=== PATIENT | female | born 1930 | race Caucasian/White ===

== ENCOUNTER 2016-05-20 14:51 | Emergency (ER) | payer MEDICARE, MEDICAID ==
[~2016-05-20] VITALS: Ht 170.2 cm; Wt 57.6 kg
[2016-05-20 15:04] VITALS: BP 101/57
[2016-05-20] MEDS ORDERED: POTA20PW GT (15:15)
[2016-05-20] MEDS ORDERED: ISOS20TA PO (15:15)
[2016-05-20] MEDS ORDERED: ACET500C PO (15:15)
[2016-05-20] MEDS ORDERED: NICO21DI5 TD (15:15)
[2016-05-20] MEDS ORDERED: ACET650S3 PR (15:15)
[2016-05-20] MEDS ORDERED: MEMA1TAB PO (15:15)
[2016-05-20] MEDS ORDERED: LASI40TA PO (15:15)
[2016-05-20] MEDS ORDERED: MULTLIQ (15:15)
[2016-05-20] MEDS ORDERED: TETANUS/DIPHTHERIA TOX ADSORB ADULT 0.5ML SYR/VIAL (90714) IM ONE (15:45)
--- NOTE | 2016-05-21 08:15 | REP ---
CT study of the brain without contrast: History: Trauma. Findings: Digital lateral legend maker view is unremarkable except for some scalp swelling at the vertex. On bone window settings there is a scalp hematoma just to the right of midline at the posterior vertex. No skull fracture is seen. No intraorbital abnormalities observed. Vascular calcification is seen in the distal vertebral and carotid arteries bilaterally. There is moderate diffuse cerebral atrophy. There is no evidence of intracranial hemorrhage. No extra-axial fluid collection is seen. No mass, infarction or midline shift is seen. Impression: 1. Right vertex scalp hematoma. No skull fracture is seen. 2. Diffuse atrophy, vascular calcification and some small vessel changes. No acute intracranial lesion. No hemorrhage or contusion seen. Signed by Mayito Tate MD 05/21/2016 08:43 A
== END 2016-05-20 16:32 | disposition home or self-care (01) ==
LOC: M ED 16:07
DX: S09.90XA Unspecified injury of head, initial encounter (principal); W19.XXXA Unspecified fall, initial encounter; Y92.89 Other specified places as the place of occurrence of the external cause; Y93.89 Activity, other specified; Y99.9 Unspecified external cause status

== ENCOUNTER 2016-06-20 11:23 | Inpatient (IN) | payer MEDICARE, MEDICAID ==
[~2016-06-20] VITALS: Ht 170.2 cm; Wt 53.3 kg
[~2016-06-20 11:23] MED LIST changes: -ACET-654 PO; -BISA10SU4 PR; -ENEM1ENE4 PR; -LEVA500T PO; -MILKSUS PO; -MIRT1TAB PO; -NICO7DIS2 TD; -REME15TA PO; -VITMTA PO
[2016-06-20] MEDS ORDERED: NS IV ONE (11:45)
[2016-06-20] MEDS ORDERED: DILUENT IV ONE (11:45)
[2016-06-20] MEDS ORDERED: REME15TA PO (11:46)
[2016-06-20] MEDS ORDERED: ACETAMINOPHEN TAB 650MG DOSE (2X325MG) PO ONE (12:00)
[2016-06-20 12:02] LABS: ABG BASE EXCESS 0.1 (-2.0-2.0); ABG HCO3 22.5 MEQ/L (22.0-26.0); ABG PARTIAL PRESSURE CO2 30.1 mmHg (35.0-45.0); ABG PARTIAL PRESSURE O2 72.6 mmHg (75.0-100.0); ABG STANDARD HCO3 24.5 MEQ/L (22.0-26.0); ABG TOTAL CO2 23.5 MEQ/L (23.0-31.0); ABG pH (ARTERIAL) 7.492 UNITS (7.350-7.450)
[2016-06-20] MEDS ORDERED: CEFEPIME HCL 1 GM in D5W MINI-BAG PLUS 50 ML IV ONE (12:15)
[2016-06-20 12:16] LABS: BASO % 0.3 % (0.0-1.0); EOS % 0.3 % (0.0-3.0); LARGE UNSTAINED CELL # 0.2 K/mm3 (0.0-0.4); LARGE UNSTAINED CELL % 1.2 % (0.0-4.0); LYMPH # 1.5 K/mm3 (1.5-4.5); LYMPH % 9.4 % (24.0-44.0); MEAN CORPUSCULAR HEMOGLOBIN 30.8 pg (27.0-33.0); MEAN CORPUSCULAR HGB CONC 32.9 g/dl (32.0-36.5); MEAN CORPUSCULAR VOLUME 93.8 fl (80.0-96.0); MONO % 6.2 % (0.0-5.0); NEUTROPHILS # 12.7 K/mm3 (1.8-7.7); NEUTROPHILS % 82.5 % (36.0-66.0); PLATELET COUNT, AUTOMATED 131 k/mm3 (150-450); RED CELL DISTRIBUTION WIDTH 12.3 % (11.5-14.5); WHITE BLOOD COUNT 15.4 K/mm3 (4.0-10.0)
[2016-06-20 12:24] LABS: INR 1.2
[2016-06-20 12:31] LABS: ALBUMIN 2.9 GM/DL (3.2-5.2); ALBUMIN/GLOBULIN RATIO 0.71 (1.00-1.93); BILIRUBIN,DIRECT 0.1 MG/DL (0.0-0.2); BILIRUBIN,TOTAL 0.5 MG/DL (0.2-1.0); CALCIUM LEVEL 8.1 MG/DL (8.8-10.2); CREATININE FOR GFR 1.74 MG/DL (0.55-1.02); GLOMERULAR FILTRATION RATE 29.5 (>32); POTASSIUM SERUM 3.9 MEQ/L (3.5-5.1)
--- NOTE | 2016-06-20 12:37 | REP ---
Portable chest: Single view. History: Sepsis, shock. Comparison study: No comparison radiographs. Findings: The patient is rotated somewhat to the right for the current exposure. A bipolar pacemaker is seen in the right heart via the left side. The heart is not enlarged. The lungs are well inflated and free of infiltrate. The pleural angles are sharp. Pulmonary vasculature is not increased. Impression: No active disease. Pacemaker in place. Patient rotated somewhat to the right. Signed by Mayito Tate MD 06/20/2016 03:38 P
[2016-06-20] MEDS ORDERED: NICO7DIS2 TD (13:46)
[2016-06-20] MEDS ORDERED: MIRT1TAB PO (13:46)
[2016-06-20] MEDS ORDERED: BISA10SU4 PR (13:50)
[2016-06-20] MEDS ORDERED: MILKSUS PO (13:50)
[2016-06-20] MEDS ORDERED: VITMTA PO (13:50)
[2016-06-20] MEDS ORDERED: ENEM1ENE4 PR (13:50)
[2016-06-20] MEDS ORDERED: ACET-654 PO (13:54)
--- NOTE | 2016-06-20 15:08 | HPEPDOC ---
General Date of Admission Primary Care Physician: Melody Coburn Chief Complaint The patient is a 85-year-old female admitted with a reason for visit of FEVER. Source: Family Exam Limitations: Dementia, Hard of hearing, Other History of Present Illness Ms Mehta is an 85 y/o female with past medical history of advanced dementia , nicotine dependence, pacemaker implantation, history of VT greater than 5 years ago and chronic back pain who is a resident of [facility] who presents to the ED due to low blood pressures and falls. According to the granddaughter Giulia, who is bedside and is also the pts health care proxy, she states that her grandmother has also been more fatigued than usual over the past 3 days.The patient is essentially unable to give a history as she has advanced dementia and is so tired, she falls asleep after a few seconds of arousal. Thus most of the history is per the grandauter. She states to the best of her ability that the patient has not ever lost consciousness, lost bowel or urine function, complained of cough or sob nor bernabe chest pain during , before or proceeding these falls. She states that she used to live with her and her at home but started to use foul language when she would become disorientated and they realized she was too much to care for, so they decided to place her in [facility]. The grand daughter denied the pt complaining of recent h/a , blurred vision, back pain, problems defecating or urinating nor fever or chills.The HCP can be reached at [phone]. Home Medications Scheduled Memantine Hydrochloride (Memantine HCl) 5 Mg Tab 5 MG PO DAILY (Reported) Mirtazapine (Mirtazapine) 7.5 Mg Tab 7.5 MG PO QHS (Reported) Multivitamins *[facility] STOCKED* (Thera M Plus *[facility] STOCKED*) 1 Tab Tab 1 TAB PO DAILY (Reported) Nicotine (Nicotine 7MG Patch) 1 Patch Tdsy 1 PATCH TD DAILY (Reported) SCRIPT STARTED 06/08/16 FOR 14 DAYS END DATE OF 06/21/16 Scheduled PRN (Enema) 1 Tari Tari 1 TARI NM DAILY PRN PRN CONSTIPATION (Reported) Acetaminophen (Acetaminophen) 650 Mg Sup 650 MG NM Q4H PRN PRN PAIN / FEVER ( Reported) Acetaminophen (Acetaminophen) 325 Mg Tab 650 MG PO Q4H PRN PRN PAIN OR FEVER ( Reported) Bisacodyl (Bisacodyl) 10 Mg Sup 10 MG NM DAILY PRN PRN CONSTIPATION (Reported) Milk Of Magnesia (Milk of Magnesia) 1,200 Mg/15 Ml Yolette 30 ML PO DAILY PRN PRN CONSTIPATION (Reported) Allergies Coded Allergies: No Known Drug Allergy (Verified Allergy, Unknown, 05/20/16) Past Medical History Medical History advanced dementia pacemaker insert VT > 5yrs prior nicotine abuse/dependence back pain Surgical History back sx pacemaker Social History * Smoker: former Smoker (quit 2 mo ago when moved into [facility], used to smoke .5 ppd since the year 1964) Drugs: denies [facility] resident Review of Symptoms Constitutional: Reports: Fever, Denies: Chills, Malaise Eyes: Denies: Conjunctivae inflammation, Eyelid inflammation (ROS unobtainable by pt.), Pain, Vision change Physical Examination General Exam: Positive: No Acute Distress Eye Exam: Positive: EOMI, Negative: Sclera icteric ENT Exam: Positive: Atraumatic, Nares Patent Neck Exam: Positive: Supple Chest Exam: Positive: Clear to auscultation, Other (some crackles RUL), Negative: Diminished, Rales, Rhonchi, Wheezing Heart Exam: Positive: Normal S1, Normal S2, Rate Normal, Negative: Gallops, Rubs Telemetry: Positive: No significant arrhythmia Abdomen Exam: Positive: Normal bowel sounds, Soft, Negative: BS Hyperactive, BS Hypoactive, Hepatospenomegaly, Tenderness Extremity Exam: Positive: Normal pulses, Negative: Cyanosis, Edema Psych Exam: Positive: Other (advanced dementia) Vital Signs Vital Signs Date Time Temp Pulse Resp B/P Pulse Ox O2 Delivery O2 Flow Rate FiO2 06/20/16 14:09 62 95 06/20/16 14:01 97/55 06/20/16 13:19 99.4 06/20/16 11:51 18 Room Air Laboratory Data Labs 24H Laboratory Tests 2 06/20/16 11:53: Arterial Blood pH 7.492H, Arterial Blood Partial Pressure CO2 30.1L, Arterial Blood Partial Pressure O2 72.6L, Arterial Blood Total CO2 23.5, Arterial Blood HCO3 22.5, Arterial Blood Base Excess 0.1, Arterial Blood Oxygen Saturation 95.0 , Blood Gas Bicarbonate Standard 24.5 06/20/16 11:59: Activated Partial Thromboplast Time 31.2, Aspartate Amino Transf (AST/SGOT) 44H , Alanine Aminotransferase (ALT/SGPT) 35, Alkaline Phosphatase 64, Total Bilirubin 0.5, Direct Bilirubin 0.1, Albumin 2.9L, Albumin/Globulin Ratio 0.71L , Amylase Level 54, Anion Gap 7L, White Blood Count 15.4H, Red Blood Count 3.97L , Hemoglobin 12.3, Hematocrit 37.3, Mean Corpuscular Volume 93.8, Mean Corpuscular Hemoglobin 30.8, Mean Corpuscular Hemoglobin Concent 32.9, Red Cell Distribution Width 12.3, Platelet Count 131L, Neutrophils (%) (Auto) 82.5H, Lymphocytes (%) (Auto) 9.4L, Monocytes (%) (Auto) 6.2H, Eosinophils (%) (Auto) 0.3, Basophils (%) (Auto) 0.3, Neutrophils # (Auto) 12.7H, Lymphocytes # (Auto) 1.5, Monocytes # (Auto) 1.0H, Eosinophils # (Auto) 0.0, Basophils # (Auto) 0.0, C-Reactive Protein, Quantitative 7.80H, Calcium Level 8.1L, Creatine Kinase MB 1.0, Creatine Kinase MB Relative Index 0.58, Glomerular Filtration Rate 29.5L, Lactic Acid Level 1.6, Large Unclassified Cells # 0.2, Large Unclassified Cells % 1.2, Prothromb Time International Ratio 1.20, Prothrombin Time 15.3H, Total Creatine Kinase 171, Total Protein 7.0, Troponin I 0.04 06/20/16 12:11: Urine Amorphous Sediment , Urine Appearance HAZY, Urine Color YELLOW, Urine pH 5.0, Urine Specific [place] 1.012, Urine Protein 1+H, Urine Glucose (UA) NEGATIVE, Urine Ketones NEGATIVE, Urine Urobilinogen 0.2, Urine Bilirubin NEGATIVE, Urine Leukocyte Esterase 3+H, Urine Bacteria (Auto) 3+H, Urine Blood 1 +H, Urine Calcium Carbonate Cryst(Auto) , Urine Calcium Oxalate Cryst (Auto) , Urine Calcium Phosphate Jessica (Auto) , Urine Cellular Casts , Urine Cystine Crystals , Urine Granular Casts (Auto) , Urine Hyaline Casts (Auto) 0, Urine Leucine Crystals , Urine Mucus (Auto) SMALL, Urine Nitrite NEGATIVE, Urine Oval Fat Bodies (Auto) , Urine RBC (Auto) 4H, Urine Renal Epithelial Cells , Urine Sperm (Auto) , Urine Squamous Epithelial Cells 0, Urine Transitional Epithelial Cells , Urine Trichomonas (Auto) , Urine Triple Phosphate Cryst (Auto) , Urine Tyrosine Crystals , Urine Uric Acid Crystals (Auto) , Urine WBC (Auto) 117H, Urine Waxy Casts (Auto) , Urine Yeast-Like Cells (Auto) CBC/BMP Laboratory Tests 06/20/16 11:59 Red Blood Count 3.97 L, Mean Corpuscular Volume 93.8, Mean Corpuscular Hemoglobin 30.8, Mean Corpuscular Hemoglobin Concent 32.9, Red Cell Distribution Width 12.3, Neutrophils (%) (Auto) 82.5 H, Lymphocytes (%) (Auto) 9.4 L, Monocytes (%) (Auto) 6.2 H, Eosinophils (%) (Auto) 0.3, Basophils (%) ( Auto) 0.3, Neutrophils # (Auto) 12.7 H, Lymphocytes # (Auto) 1.5, Monocytes # ( Auto) 1.0 H, Eosinophils # (Auto) 0.0, Basophils # (Auto) 0.0 Microbiology Microbiology 06/20/16 Blood Culture, Received Pending 06/20/16 Blood Culture, Received Pending 06/20/16 Influenza Virus Type A Antigen - Final, Complete 06/20/16 Influenza Virus Type B Antigen - Final, Complete 06/20/16 Urine Culture, Received Pending Problems (1) Sepsis Status: Acute Response to Treatment: Stable Problem Text: likely 2/2 uti urine and blood cx pending rr 18-22 temp 101.6 F highest in ED BP soft 104/57 wbc 15.4 will begin NS at 50 cc s/p 2500 mL NS bolus s/p 1 gm cefepime- will continue on admission q12h repeat CMP and BMP in AM CXR neg. 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 (4) DVT prophylaxis Status: Acute Response to Treatment: Stable Problem Text: scd teds Plan / VTE VTE Prophylaxis Ordered?: Yes GME ATTESTATION GME ATTESTATION My preceptor for this patient encounter was physically present in the building during the encounter and was fully available. As needed, all aspects of the patient interview, examination, medical decision making process, and medical care plan development were reviewed and approved by the preceptor. Preceptor is aware and concurs with the plan as stated in the body of this note and will attest to such by his/her cosignature. POLINA BRUCE DO Jun 20, 2016 15:08
[2016-06-20] MEDS ORDERED: BISACODYL 10 MG SUPP PR PRN (16:30)
[2016-06-20] MEDS ORDERED: ACETAMINOPHEN 650 MG SUPP PR PRN (16:30)
[2016-06-20] MEDS ORDERED: MOM 30ML SUSPENSION UDC PO PRN (16:30)
[2016-06-20 16:50] VITALS: BP 131/60
[2016-06-20] MEDS: NS 1,000 ML IV SCH (16:59)
--- NOTE | 2016-06-20 20:18 | ECGEPIP ---
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
[2016-06-20] MEDS: MIRTAZAPINE 7.5MG PER 1/2 TABLET PO SCH (21:31)
[2016-06-20 22:00] VITALS: BP 120/58
[2016-06-21] MEDS: CEFEPIME HCL 1 GM in D5W MINI-BAG PLUS 50 ML IV SCH ×3 (00:17→23:19)
[2016-06-21 06:00] VITALS: BP 108/52
[2016-06-21 07:51] LABS: BASO % 0.3 % (0.0-1.0); EOS % 0.1 % (0.0-3.0); LARGE UNSTAINED CELL # 0.1 K/mm3 (0.0-0.4); LARGE UNSTAINED CELL % 1.2 % (0.0-4.0); LYMPH # 2.2 K/mm3 (1.5-4.5); LYMPH % 18.4 % (24.0-44.0); MEAN CORPUSCULAR HEMOGLOBIN 31.3 pg (27.0-33.0); MEAN CORPUSCULAR HGB CONC 33.1 g/dl (32.0-36.5); MEAN CORPUSCULAR VOLUME 94.6 fl (80.0-96.0); MONO # 0.6 K/mm3 (0.0-0.8); MONO % 4.9 % (0.0-5.0); NEUTROPHILS # 8.4 K/mm3 (1.8-7.7); NEUTROPHILS % 75.1 % (36.0-66.0); PLATELET COUNT, AUTOMATED 102 k/mm3 (150-450); RED CELL DISTRIBUTION WIDTH 12.4 % (11.5-14.5); WHITE BLOOD COUNT 11.2 K/mm3 (4.0-10.0)
[2016-06-21 08:17] LABS: CALCIUM LEVEL 7.4 MG/DL (8.8-10.2); CREATININE FOR GFR 1.08 MG/DL (0.55-1.02); GLOMERULAR FILTRATION RATE 51.1 (>32); POTASSIUM SERUM 3.7 MEQ/L (3.5-5.1)
[2016-06-21] MEDS: MEMANTINE 5MG TABLET (NAMENDA) PO SCH (09:17)
[2016-06-21] MEDS: MULTIVITAMINS/MINERALS THERAP 1 TAB PO SCH (09:17)
[2016-06-21] MEDS: NICOTINE 7 MG/24 HR TRANSDERMAL TD SCH (09:17)
--- NOTE | 2016-06-21 10:58 | IPNPDOC ---
Subjective Date Seen The patient was seen on 06/21/16. Subjective Chief Complaint/HPI Pt demented, history difficult to obtain. General: Reports: ROS Unobtainable Objective Physical Examination General Exam: Positive: No Acute Distress (resting in bed, opens eyes briefly to voice, becomes agitated, tells me to "shut up") Eye Exam: Positive: EOMI, Negative: Sclera icteric ENT Exam: Positive: Atraumatic, Nares Patent Neck Exam: Positive: Supple Chest Exam: Positive: Clear to auscultation, Other (some crackles RUL), Negative: Diminished, Rales, Rhonchi, Wheezing Heart Exam: Positive: Normal S1, Normal S2, Rate Normal, Negative: Gallops, Rubs Telemetry: Positive: No significant arrhythmia Abdomen Exam: Positive: Normal bowel sounds, Soft, Tenderness (? tenderness on exam, pushes my hands away?), Negative: BS Hyperactive, BS Hypoactive, Hepatospenomegaly Extremity Exam: Positive: Normal pulses, Negative: Cyanosis, Edema Psych Exam: Positive: Other (advanced dementia) Assessment /Plan Problems (1) Sepsis Status: Acute Response to Treatment: Stable Problem Text: 06/21 - Tmax 100.1, WBC trending down, pressures remain soft, will cont with IVF at 50 cc/hr, Blood cultures pending, Urine Cx + Group B strep , cont with cefepime. 06/20 likely 2/2 uti urine and blood cx pending rr 18-22 temp 101.6 F highest in ED BP soft 104/57 wbc 15.4 will begin NS at 50 cc s/p 2500 mL NS bolus s/p 1 gm cefepime- will continue on admission q12h repeat CMP and BMP in AM CXR neg. 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 06/20 c.w home medication pt gets angry when put in new situations- will order sitter (3) Nicotine dependence Status: Acute Response to Treatment: Stable Problem Text: c/w nicotine patch inpt. (4) Severe protein-calorie malnutrition Status: Acute Problem Specific Plan: Monitor Clinically Problem Text: 06/21 - I discussed PEG with patient's granddaughter and HCP this afternoon - she states patient would not want a PEG; I d/w her that weight loss and decreased appetite are expected with progression of dementia, and do not necessarily indicate that patient has an other underlying problem or is uncomfortable. (KES) BMI 18, 05/19/18 weight 127, now 117. Consider PEG placement. (5) Urinary retention Status: Acute Problem Text: 06/21 - Patient c/o abdominal discomfort earlier today; bladder scan showed 765 ml in bladder and patient was straight cath'ed for 850 [address] currently in [address]. (KES) (6) DVT prophylaxis Status: Chronic Response to Treatment: Stable Problem Text: scd teds Plan/VTE VTE Prophylaxis Ordered?: Yes Plan Family Medicine Attending Note: Patient seen and examined this afternoon; I d/w PRAKASH Olson and I agree with her note with above additions. She has no complaints at present. Graham catheter is in place and draining light yellow urine. (KES) VS, I&O, 24H, Fishbone Vital Signs/I&O Vital Signs Date Time Temp Pulse Resp B/P Pulse Ox O2 Delivery O2 Flow Rate FiO2 06/21/16 06:00 99.0 76 19 108/52 90 Room Air I&O- Last 24 Hours up to 6 AM 06/21/16 06:00 Intake Total 720 ml Output Total 1500 ml Balance -780 ml Laboratory Data 24H LABS Laboratory Tests 2 06/20/16 11:53: Arterial Blood pH 7.492H, Arterial Blood Partial Pressure CO2 30.1L, Arterial Blood Partial Pressure O2 72.6L, Arterial Blood Total CO2 23.5, Arterial Blood HCO3 22.5, Arterial Blood Base Excess 0.1, Arterial Blood Oxygen Saturation 95.0 , Blood Gas Bicarbonate Standard 24.5 06/20/16 11:59: Activated Partial Thromboplast Time 31.2, Aspartate Amino Transf (AST/SGOT) 44H , Alanine Aminotransferase (ALT/SGPT) 35, Alkaline Phosphatase 64, Total Bilirubin 0.5, Direct Bilirubin 0.1, Albumin 2.9L, Albumin/Globulin Ratio 0.71L , Amylase Level 54, Anion Gap 7L, White Blood Count 15.4H, Red Blood Count 3.97L , Hemoglobin 12.3, Hematocrit 37.3, Mean Corpuscular Volume 93.8, Mean Corpuscular Hemoglobin 30.8, Mean Corpuscular Hemoglobin Concent 32.9, Red Cell Distribution Width 12.3, Platelet Count 131L, Neutrophils (%) (Auto) 82.5H, Lymphocytes (%) (Auto) 9.4L, Monocytes (%) (Auto) 6.2H, Eosinophils (%) (Auto) 0.3, Basophils (%) (Auto) 0.3, Neutrophils # (Auto) 12.7H, Lymphocytes # (Auto) 1.5, Monocytes # (Auto) 1.0H, Eosinophils # (Auto) 0.0, Basophils # (Auto) 0.0, C-Reactive Protein, Quantitative 7.80H, Calcium Level 8.1L, Creatine Kinase MB 1.0, Creatine Kinase MB Relative Index 0.58, Glomerular Filtration Rate 29.5L, Lactic Acid Level 1.6, Large Unclassified Cells # 0.2, Large Unclassified Cells % 1.2, Prothromb Time International Ratio 1.20, Prothrombin Time 15.3H, Total Creatine Kinase 171, Total Protein 7.0, Troponin I 0.04 06/20/16 12:11: Urine Amorphous Sediment , Urine Appearance HAZY, Urine Color YELLOW, Urine pH 5.0, Urine Specific [place] 1.012, Urine Protein 1+H, Urine Glucose (UA) NEGATIVE, Urine Ketones NEGATIVE, Urine Urobilinogen 0.2, Urine Bilirubin NEGATIVE, Urine Leukocyte Esterase 3+H, Urine Bacteria (Auto) 3+H, Urine Blood 1 +H, Urine Calcium Carbonate Cryst(Auto) , Urine Calcium Oxalate Cryst (Auto) , Urine Calcium Phosphate Jessica (Auto) , Urine Cellular Casts , Urine Cystine Crystals , Urine Granular Casts (Auto) , Urine Hyaline Casts (Auto) 0, Urine Leucine Crystals , Urine Mucus (Auto) SMALL, Urine Nitrite NEGATIVE, Urine Oval Fat Bodies (Auto) , Urine RBC (Auto) 4H, Urine Renal Epithelial Cells , Urine Sperm (Auto) , Urine Squamous Epithelial Cells 0, Urine Transitional Epithelial Cells , Urine Trichomonas (Auto) , Urine Triple Phosphate Cryst (Auto) , Urine Tyrosine Crystals , Urine Uric Acid Crystals (Auto) , Urine WBC (Auto) 117H, Urine Waxy Casts (Auto) , Urine Yeast-Like Cells (Auto) 06/21/16 06:56: Anion Gap 8, White Blood Count 11.2H, Red Blood Count 3.49L, Hemoglobin 10.9L, Hematocrit 33.0L, Mean Corpuscular Volume 94.6, Mean Corpuscular Hemoglobin 31.3 , Mean Corpuscular Hemoglobin Concent 33.1, Red Cell Distribution Width 12.4, Platelet Count 102L, Neutrophils (%) (Auto) 75.1H, Lymphocytes (%) (Auto) 18.4L , Monocytes (%) (Auto) 4.9, Eosinophils (%) (Auto) 0.1, Basophils (%) (Auto) 0.3 , Neutrophils # (Auto) 8.4H, Lymphocytes # (Auto) 2.2, Monocytes # (Auto) 0.6, Eosinophils # (Auto) 0.0, Basophils # (Auto) 0.0, Calcium Level 7.4L, Glomerular Filtration Rate 51.1, Large Unclassified Cells # 0.1, Large Unclassified Cells % 1.2, Blood Urea Nitrogen 35H, Creatinine 1.08H, Sodium Level 139, Potassium Level 3.7, Chloride Level 107, Carbon Dioxide Level 24 CBC/BMP Laboratory Tests 06/20/16 11:59 Red Blood Count 3.97 L, Mean Corpuscular Volume 93.8, Mean Corpuscular Hemoglobin 30.8, Mean Corpuscular Hemoglobin Concent 32.9, Red Cell Distribution Width 12.3, Neutrophils (%) (Auto) 82.5 H, Lymphocytes (%) (Auto) 9.4 L, Monocytes (%) (Auto) 6.2 H, Eosinophils (%) (Auto) 0.3, Basophils (%) ( Auto) 0.3, Neutrophils # (Auto) 12.7 H, Lymphocytes # (Auto) 1.5, Monocytes # ( Auto) 1.0 H, Eosinophils # (Auto) 0.0, Basophils # (Auto) 0.0 06/21/16 06:56 Red Blood Count 3.49 L, Mean Corpuscular Volume 94.6, Mean Corpuscular Hemoglobin 31.3, Mean Corpuscular Hemoglobin Concent 33.1, Red Cell Distribution Width 12.4, Neutrophils (%) (Auto) 75.1 H, Lymphocytes (%) (Auto) 18.4 L, Monocytes (%) (Auto) 4.9, Eosinophils (%) (Auto) 0.1, Basophils (%) ( Auto) 0.3, Neutrophils # (Auto) 8.4 H, Lymphocytes # (Auto) 2.2, Monocytes # ( Auto) 0.6, Eosinophils # (Auto) 0.0, Basophils # (Auto) 0.0, Calcium Level 7.4 L Microbiology Microbiology 06/20/16 Blood Culture, Received Pending 06/20/16 Blood Culture, Received Pending 06/20/16 Influenza Virus Type A Antigen - Final, Complete 06/20/16 Influenza Virus Type B Antigen - Final, Complete 06/20/16 Urine Culture - Preliminary, Resulted Strep Agalactiae Group B BRENDAN WEATHERS PA-C Jun 21, 2016 10:57 CARLINE DIXON MD Jun 21, 2016 16:03
[2016-06-21] MEDS: NS 1,000 ML IV SCH (12:53)
[2016-06-21 14:00] VITALS: BP 119/58
[2016-06-21] MEDS: MIRTAZAPINE 7.5MG PER 1/2 TABLET PO SCH (20:46)
[2016-06-21 22:00] VITALS: BP 97/53
[2016-06-22 06:00] VITALS: BP 122/57
[2016-06-22 06:22] LABS: BASO % 0.4 % (0.0-1.0); EOS % 0.5 % (0.0-3.0); LARGE UNSTAINED CELL # 0.1 K/mm3 (0.0-0.4); LARGE UNSTAINED CELL % 1.1 % (0.0-4.0); LYMPH # 1.9 K/mm3 (1.5-4.5); LYMPH % 20.9 % (24.0-44.0); MEAN CORPUSCULAR HEMOGLOBIN 31.3 pg (27.0-33.0); MEAN CORPUSCULAR HGB CONC 32.7 g/dl (32.0-36.5); MEAN CORPUSCULAR VOLUME 95.6 fl (80.0-96.0); MONO # 0.4 K/mm3 (0.0-0.8); MONO % 4.6 % (0.0-5.0); NEUTROPHILS # 6.4 K/mm3 (1.8-7.7); NEUTROPHILS % 72.4 % (36.0-66.0); PLATELET COUNT, AUTOMATED 102 k/mm3 (150-450); RED CELL DISTRIBUTION WIDTH 12.4 % (11.5-14.5); WHITE BLOOD COUNT 8.8 K/mm3 (4.0-10.0)
[2016-06-22 06:26] LABS: ANION GAP 7 MEQ/L (8-16); BLOOD UREA NITROGEN 29 MG/DL (7-18); CALCIUM LEVEL 7.6 MG/DL (8.8-10.2); CARBON DIOXIDE LEVEL 23 MEQ/L (21-32); CHLORIDE LEVEL 111 MEQ/L (98-107); CREATININE FOR GFR 0.86 MG/DL (0.55-1.02); GLOMERULAR FILTRATION RATE > 60.0 (>32); GLUCOSE, FASTING 113 MG/DL (83-110); POTASSIUM SERUM 3.7 MEQ/L (3.5-5.1); SODIUM LEVEL 141 MEQ/L (136-145)
[2016-06-22] MEDS: MEMANTINE 5MG TABLET (NAMENDA) PO SCH (08:17)
[2016-06-22] MEDS: MULTIVITAMINS/MINERALS THERAP 1 TAB PO SCH (08:17)
[2016-06-22] MEDS: NICOTINE 7 MG/24 HR TRANSDERMAL TD SCH (08:17)
[2016-06-22] MEDS: NS 1,000 ML IV SCH (08:18)
--- NOTE | 2016-06-22 10:29 | IPNPDOC ---
Subjective Date Seen The patient was seen on 06/22/16. Subjective Chief Complaint/HPI The patient is a 85-year-old female admitted with a reason for visit of Sepsis. Events since last encounter Pt this morning denies pain. States that she has to "pee". She knows that she is in the hospital. General: Denies: Fatigue Constitutional: Denies: Chills, Fever Pulmonary: Denies: Cough, Dyspnea Cardiovascular: Denies: Chest Pain, Palpitations Gastrointestinal: Denies: Abdominal Pain, Diarrhea, Nausea, Vomiting Neurological: Reports: Weakness Psych: Reports: Memory Issues Objective Physical Examination General Exam: Positive: Alert (Answers questions appropriately), No Acute Distress Eye Exam: Positive: EOMI, Negative: Sclera icteric ENT Exam: Positive: Atraumatic, Nares Patent Neck Exam: Positive: Supple Chest Exam: Positive: Clear to auscultation, Negative: Diminished, Rales, Rhonchi, Wheezing Heart Exam: Positive: Normal S1, Normal S2, Rate Normal, Negative: Gallops, Rubs Telemetry: Positive: No significant arrhythmia Abdomen Exam: Positive: Normal bowel sounds, Soft, Negative: BS Hyperactive, BS Hypoactive, Hepatospenomegaly, Tenderness Extremity Exam: Positive: Normal pulses, Negative: Cyanosis, Edema Psych Exam: Positive: Other (Aware she is in the hospital, and able to report her name, incorrect response to the year) Assessment /Plan Problems (1) Sepsis Status: Acute Response to Treatment: Stable Problem Text: 06/22 - Afebrile for more than 24 h, WBC normalized, Blood cultures Neg. Will d/c IVF today. Cefepime D 2, anticipate transfer to [facility] tomorrow. 06/21 - Tmax 100.1, WBC trending down, pressures remain soft, will cont with IVF at 50 cc/hr, Blood cultures pending, Urine Cx + Group B strep, cont with cefepime. 06/20 likely 2/2 uti urine and blood cx pending rr 18-22 temp 101.6 F highest in ED BP soft 104/57 wbc 15.4 will begin NS at 50 cc s/p 2500 mL NS bolus s/p 1 gm cefepime- will continue on admission q12h repeat CMP and BMP in AM CXR neg. infectious process Pt is [employer] with trial IV antibiotics, if condition should worsen, please contact HCP Laney at [phone] (2) Dementia Status: Chronic Response to Treatment: Stable Problem Text: 06/21 - sitter at bedside, pt mostly sleeping, does become agitated during exam. 06/20 c.w home medication pt gets angry when put in new situations- will order sitter (3) Nicotine dependence Status: Acute Response to Treatment: Stable Problem Text: c/w nicotine patch inpt. (4) Severe protein-calorie malnutrition Status: Acute Problem Specific Plan: Monitor Clinically Problem Text: 06/21 - I discussed PEG with patient's granddaughter and HCP this afternoon - she states patient would not want a PEG; I d/w her that weight loss and decreased appetite are expected with progression of dementia, and do not necessarily indicate that patient has an other underlying problem or is uncomfortable. (KES) BMI 18, 05/19/18 weight 127, now 117. Consider PEG placement. (5) Urinary retention Status: Acute Problem Text: 06/21 - Patient c/o abdominal discomfort earlier today; bladder scan showed 765 ml in bladder and patient was straight cath'ed for [address] in [address]. (KES) (6) DVT prophylaxis Status: Chronic Response to Treatment: Stable Problem Text: scd teds Plan/VTE VTE Prophylaxis Ordered?: Yes Plan/Urinary Catheter Reason for insertion/continuin: Other-document below Plan Anticipated Discharge: Half-Way (anticipate d/c 06/23.) Advance Directives: DNR Family Medicine Attending Note: Patient seen and examined this afternoon. I d/ w LEX Olson and I agree with her note as above. Patient offers no complaints today and is more awake and alert today. I asked nurse to try to remove lofton catheter and monitor voiding pattern, with bladder scan PRN to determine if lofton needs to be continued. If she has recurrence of urinary retention, will re-place lofton and recommend outpatient followup after discharge home to [facility]. (KES) VS, I&O, 24H, Fishbone Vital Signs/I&O Vital Signs Date Time Temp Pulse Resp B/P Pulse Ox O2 Delivery O2 Flow Rate FiO2 06/22/16 06:00 98.8 64 18 122/57 96 Nasal Cannula 2.0 I&O- Last 24 Hours up to 6 AM 06/22/16 06:00 Intake Total 1640 ml Output Total 2100 ml Balance -460 ml Laboratory Data 24H LABS Laboratory Tests 2 06/22/16 05:41: Anion Gap 7L, White Blood Count 8.8, Red Blood Count 3.25L, Hemoglobin 10.2L, Hematocrit 31.1L, Mean Corpuscular Volume 95.6, Mean Corpuscular Hemoglobin 31.3 , Mean Corpuscular Hemoglobin Concent 32.7, Red Cell Distribution Width 12.4, Platelet Count 102L, Neutrophils (%) (Auto) 72.4H, Lymphocytes (%) (Auto) 20.9L , Monocytes (%) (Auto) 4.6, Eosinophils (%) (Auto) 0.5, Basophils (%) (Auto) 0.4 , Neutrophils # (Auto) 6.4, Lymphocytes # (Auto) 1.9, Monocytes # (Auto) 0.4, Eosinophils # (Auto) 0.0, Basophils # (Auto) 0.0, Blood Urea Nitrogen 29H, Creatinine 0.86, Sodium Level 141, Potassium Level 3.7, Chloride Level 111H, Carbon Dioxide Level 23, Calcium Level 7.6L, Glomerular Filtration Rate > 60.0, Large Unclassified Cells # 0.1, Large Unclassified Cells % 1.1 CBC/BMP Laboratory Tests 06/22/16 05:41 Calcium Level 7.6 L, Red Blood Count 3.25 L, Mean Corpuscular Volume 95.6, Mean Corpuscular Hemoglobin 31.3, Mean Corpuscular Hemoglobin Concent 32.7, Red Cell Distribution Width 12.4, Neutrophils (%) (Auto) 72.4 H, Lymphocytes (%) (Auto) 20.9 L, Monocytes (%) (Auto) 4.6, Eosinophils (%) (Auto) 0.5, Basophils (%) ( Auto) 0.4, Neutrophils # (Auto) 6.4, Lymphocytes # (Auto) 1.9, Monocytes # (Auto ) 0.4, Eosinophils # (Auto) 0.0, Basophils # (Auto) 0.0 Microbiology Microbiology 06/20/16 Blood Culture - Preliminary, Resulted No growth after 24 hours . All specim... 06/20/16 Blood Culture - Preliminary, Resulted No growth after 24 hours . All specim... 06/21/16 MRSA Screen, Received Pending 06/20/16 Influenza Virus Type A Antigen - Final, Complete 06/20/16 Influenza Virus Type B Antigen - Final, Complete 06/20/16 Respiratory Virus Panel (PCR) (JOSUE) - Final, Complete 06/20/16 Urine Culture - Final, Complete Strep Agalactiae Group B BRENDAN WEATHERS PA-C Jun 22, 2016 10:29 CARLINE DIXON MD Jun 22, 2016 14:03
[2016-06-22] MEDS: CEFEPIME HCL 1 GM in D5W MINI-BAG PLUS 50 ML IV SCH ×2 (12:31→23:33)
[2016-06-22] MEDS: ACETAMINOPHEN 325 MG TAB PO PRN (17:55)
[2016-06-22] MEDS: MIRTAZAPINE 7.5MG PER 1/2 TABLET PO SCH (20:13)
[2016-06-22 22:00] VITALS: BP 102/56
[2016-06-23] MEDS: ACETAMINOPHEN 325 MG TAB PO PRN (00:45)
[2016-06-23] MEDS: NS 1,000 ML IV SCH (04:30)
[2016-06-23 06:00] VITALS: BP 122/59
[2016-06-23 07:05] LABS: BASO % 0.2 % (0.0-1.0); EOS # 0.1 K/mm3 (0.0-0.50); LARGE UNSTAINED CELL # 0.1 K/mm3 (0.0-0.4); LARGE UNSTAINED CELL % 1.1 % (0.0-4.0); LYMPH # 1.9 K/mm3 (1.5-4.5); LYMPH % 21.4 % (24.0-44.0); MEAN CORPUSCULAR HEMOGLOBIN 32.1 pg (27.0-33.0); MEAN CORPUSCULAR HGB CONC 33.7 g/dl (32.0-36.5); MEAN CORPUSCULAR VOLUME 95.1 fl (80.0-96.0); MONO # 0.4 K/mm3 (0.0-0.8); MONO % 4.1 % (0.0-5.0); NEUTROPHILS # 6.3 K/mm3 (1.8-7.7); NEUTROPHILS % 72.2 % (36.0-66.0); RED CELL DISTRIBUTION WIDTH 12.2 % (11.5-14.5); WHITE BLOOD COUNT 8.7 K/mm3 (4.0-10.0)
[2016-06-23 07:16] LABS: ANION GAP 7 MEQ/L (8-16); BLOOD UREA NITROGEN 22 MG/DL (7-18); CALCIUM LEVEL 7.9 MG/DL (8.8-10.2); CARBON DIOXIDE LEVEL 24 MEQ/L (21-32); CHLORIDE LEVEL 109 MEQ/L (98-107); CREATININE FOR GFR 0.72 MG/DL (0.55-1.02); GLOMERULAR FILTRATION RATE > 60.0 (>32); GLUCOSE, FASTING 105 MG/DL (83-110); PLATELET COUNT, AUTOMATED 82 k/mm3 (150-450); POTASSIUM SERUM 3.4 MEQ/L (3.5-5.1); SODIUM LEVEL 140 MEQ/L (136-145)
[2016-06-23] MEDS: MULTIVITAMINS/MINERALS THERAP 1 TAB PO SCH (10:01)
[2016-06-23] MEDS: NICOTINE 7 MG/24 HR TRANSDERMAL TD SCH (10:01)
[2016-06-23] MEDS: MEMANTINE 5MG TABLET (NAMENDA) PO SCH (10:01)
[2016-06-23] MEDS ORDERED: LEVA500T PO (10:53)
--- NOTE | 2016-06-23 11:29 | DSES ---
DATE OF ADMISSION: 06/20/2016 DATE OF DISCHARGE: 06/23/2016 PRIMARY CARE PHYSICIAN: Rod Rodriguez MD ATTENDING TODAY: Skye Fuller MD HISTORY: This is an 85-year-old female patient resident of [facility] who has dementia, history of nicotine dependence, coronary artery disease, and chronic back pain, who presented to [facility] emergency room with low blood pressure and falling. She was found to be uroseptic. On evaluation, she had a temperature of 101.6. Urinalysis suggested urine was a likely source. She was given an IV fluid bolus in the emergency room and started on 50 mL of normal saline. During her hospitalization she has remained medically stable. She has been afebrile for greater than 24 hours. Her white blood cell count has normalized. She had acute kidney injury with a serum creatinine of 1.74. This is 0.72 this morning. She had been on IV fluids which were discontinued yesterday secondary to her acute kidney injury. I think this has resulted in her hemoglobin dropping some. She is 9.2 this morning. She will need outpatient followup in regards to whether or not this is going to be persistent anemia or if it is in fact associated with hydration. Her mental status has improved and appears to be close to her baseline. She does have some baseline confusion and some baseline dementia. Her granddaughter Giulia is her healthcare proxy. She is quite attentive to the patient. The patient had lived with her up until her recent admission into [facility]. During her hospitalization, she did develop some urinary retention and abdominal pain. The abdominal pain resolved with the insertion of a Graham catheter, which initially returned 1000 mL of urine. This was maintained for 24 hours and then discontinued. Again, the patient developed some urinary retention and the Graham catheter was replaced resulting in a return of 650 mL and again resolution of her abdominal discomfort. She will be discharged with a Graham catheter. She will need outpatient followup with urology as upon reinsertion nursing was suspicious for possibly a stricture and they had some difficulty reinserting the Graham catheter on the second attempt. DISCHARGE DIAGNOSES: 1. Sepsis secondary to a urinary source with urine culture positive for Group B Streptococcus (GBS). Blood cultures were negative. 2. Dementia. 3. Nicotine dependence. 4. Severe protein calorie malnutrition. 5. Urinary retention. DISCHARGE MEDICATIONS: - Levaquin 500 mg by mouth daily - acetaminophen 650 mg by mouth or per rectum every 4 hours as needed for pain or fever - bisacodyl 10 mg per rectum daily as needed for constipation - fleet enema daily as needed for constipation - Namenda 5 mg by mouth daily - Milk of Magnesia 30 mL by mouth daily as needed for constipation - mirtazapine 7.5 mg by mouth before bed - multivitamin one tablet daily - nicotine patch 7 mg topically, apply in the morning and remove in the evening before bed DISCHARGE PLAN: Followup with Dr. Rodriguez at [facility]. She should have a urology referral to followup on urinary retention and a possible urinary stricture. Her diet should be mechanical soft. Her activity should be as tolerated.
== END 2016-06-23 13:17 | DRG 871 ==
LOC: M ED 12:28 → M ED INP 15:18 → M MSPAV 16:45
PROVIDERS: ADMIT Internal Medicine; ATTEND Family Medicine
DX: A41.9 Sepsis, unspecified organism (principal); E43 Unspecified severe protein-calorie malnutrition; N39.0 Urinary tract infection, site not specified; F17.200 Nicotine dependence, unspecified, uncomplicated; Z79.899 Other long term (current) drug therapy; F03.90 Unspecified dementia, unspecified severity, without behavioral disturbance, psychotic disturbance, mood disturbance, and anxiety; B95.5 Unspecified streptococcus as the cause of diseases classified elsewhere; I25.2 Old myocardial infarction; Z87.892 Personal history of anaphylaxis; Z95.0 Presence of cardiac pacemaker; R33.9 Retention of urine, unspecified

== ENCOUNTER → 2016-06-20 | Outpatient (REF) | payer MEDICARE, MEDICAID ==
[~2016-06-20] MED LIST: ACET-654 PO; ACET500C PO; ACET650S3 PR; BISA10SU4 PR; ENEM1ENE4 PR; ISOS20TA PO; KLOR20PO12 GT; LASI40TA PO; LEVA500T PO; MEMA1TAB PO; MILKSUS PO; MIRT1TAB PO; MULTLIQ; NICO21DI5 TD; NICO7DIS2 TD; REME15TA PO; VITMTA PO
[2016-06-20 08:33] LABS: CALCIUM LEVEL 8.2 MG/DL (8.8-10.2); CREATININE FOR GFR 1.67 MG/DL (0.55-1.02); GLOMERULAR FILTRATION RATE 30.9 (>32); POTASSIUM SERUM 4.2 MEQ/L (3.5-5.1)
== END ==
LOC: SKLAB6 07:00
PROVIDERS: ATTEND Family Medicine
DX: R00.1 Bradycardia, unspecified (principal); I95.9 Hypotension, unspecified

== ENCOUNTER → 2016-06-28 | Outpatient (REF) | payer MEDICARE, MEDICAID ==
[~2016-06-28] MED LIST changes: +ACET-654 PO; +BISA10SU4 PR; +ENEM1ENE4 PR; +LEVA500T PO; +MILKSUS PO; +MIRT1TAB PO; +NICO7DIS2 TD; +REME15TA PO; +VITMTA PO
== END ==
LOC: SKLAB6 11:00
PROVIDERS: ATTEND Family Medicine
DX: Z12.11 Encounter for screening for malignant neoplasm of colon (principal); K92.1 Melena

== ENCOUNTER → 2016-06-29 | Outpatient (REF) | payer MEDICARE, MEDICAID ==
[2016-06-29 08:35] LABS: BASO % 0.4 % (0.0-1.0); EOS # 0.1 K/mm3 (0.0-0.50); EOS % 1.7 % (0.0-3.0); LARGE UNSTAINED CELL # 0.1 K/mm3 (0.0-0.4); LARGE UNSTAINED CELL % 1.9 % (0.0-4.0); LYMPH % 28.2 % (24.0-44.0); MEAN CORPUSCULAR HEMOGLOBIN 30.2 pg (27.0-33.0); MEAN CORPUSCULAR VOLUME 94.4 fl (80.0-96.0); MONO # 0.4 K/mm3 (0.0-0.8); MONO % 6.5 % (0.0-5.0); NEUTROPHILS # 4.1 K/mm3 (1.8-7.7); NEUTROPHILS % 61.3 % (36.0-66.0); PLATELET COUNT, AUTOMATED 177 k/mm3 (150-450); RED CELL DISTRIBUTION WIDTH 12.8 % (11.5-14.5); WHITE BLOOD COUNT 6.7 K/mm3 (4.0-10.0)
[2016-06-29 08:52] LABS: CALCIUM LEVEL 8.1 MG/DL (8.8-10.2); CREATININE FOR GFR 1.08 MG/DL (0.55-1.02); GLOMERULAR FILTRATION RATE 51.1 (>32); POTASSIUM SERUM 4.1 MEQ/L (3.5-5.1)
== END ==
LOC: SKLAB6 07:00
PROVIDERS: ATTEND Family Medicine
DX: R19.5 Other fecal abnormalities (principal)

== ENCOUNTER → 2016-06-30 | Outpatient (REF) | payer MEDICARE, MEDICAID ==
[2016-06-30 08:48] LABS: BASO % 0.6 % (0.0-1.0); EOS # 0.1 K/mm3 (0.0-0.50); EOS % 1.8 % (0.0-3.0); LARGE UNSTAINED CELL # 0.2 K/mm3 (0.0-0.4); LARGE UNSTAINED CELL % 2.1 % (0.0-4.0); LYMPH # 2.4 K/mm3 (1.5-4.5); LYMPH % 29.9 % (24.0-44.0); MEAN CORPUSCULAR HEMOGLOBIN 31.7 pg (27.0-33.0); MEAN CORPUSCULAR HGB CONC 32.4 g/dl (32.0-36.5); MEAN CORPUSCULAR VOLUME 97.9 fl (80.0-96.0); MONO # 0.4 K/mm3 (0.0-0.8); MONO % 5.6 % (0.0-5.0); NEUTROPHILS # 4.8 K/mm3 (1.8-7.7); NEUTROPHILS % 60.1 % (36.0-66.0); PLATELET COUNT, AUTOMATED 212 k/mm3 (150-450); RED CELL DISTRIBUTION WIDTH 12.9 % (11.5-14.5)
== END ==
LOC: SKLAB6 07:00
PROVIDERS: ATTEND Family Medicine
DX: R45.1 Restlessness and agitation (principal); I10 Essential (primary) hypertension; I71.4 Abdominal aortic aneurysm, without rupture; I25.10 Atherosclerotic heart disease of native coronary artery without angina pectoris; Z95.0 Presence of cardiac pacemaker; Z87.440 Personal history of urinary (tract) infections

== ENCOUNTER → 2016-07-02 | Outpatient (REF) | payer MEDICARE, MEDICAID | LOC: SKLAB6 09:08 | PROVIDERS: ATTEND Family Medicine | DX: Z12.11 Encounter for screening for malignant neoplasm of colon (principal) ==

== ENCOUNTER → 2016-07-06 | Outpatient (REF) | payer MEDICARE, MEDICAID ==
[2016-07-06 09:11] LABS: ANION GAP 12 MEQ/L (8-16); BLOOD UREA NITROGEN 23 MG/DL (7-18); CALCIUM LEVEL 8.4 MG/DL (8.8-10.2); CARBON DIOXIDE LEVEL 25 MEQ/L (21-32); CHLORIDE LEVEL 102 MEQ/L (98-107); CREATININE FOR GFR 0.89 MG/DL (0.55-1.02); GLOMERULAR FILTRATION RATE > 60.0 (>32); GLUCOSE, FASTING 118 MG/DL (83-110); POTASSIUM SERUM 4.4 MEQ/L (3.5-5.1); SODIUM LEVEL 139 MEQ/L (136-145)
== END ==
LOC: SKLAB6 07:00
PROVIDERS: ATTEND Family Medicine
DX: E86.0 Dehydration (principal)

== ENCOUNTER → 2016-07-06 | Outpatient (REF) | payer MEDICARE, MEDICAID | LOC: SKLAB6 08:00 | PROVIDERS: ATTEND Family Medicine | DX: K92.1 Melena (principal) ==

== ENCOUNTER → 2016-07-13 | Outpatient (REF) | payer MEDICARE, MEDICAID ==
[2016-07-13 09:41] LABS: ANION GAP 6 MEQ/L (8-16); BLOOD UREA NITROGEN 23 MG/DL (7-18); CALCIUM LEVEL 8.1 MG/DL (8.8-10.2); CARBON DIOXIDE LEVEL 27 MEQ/L (21-32); CHLORIDE LEVEL 104 MEQ/L (98-107); CREATININE FOR GFR 0.89 MG/DL (0.55-1.02); GLOMERULAR FILTRATION RATE > 60.0 (>32); GLUCOSE, FASTING 100 MG/DL (83-110); POTASSIUM SERUM 4.4 MEQ/L (3.5-5.1); SODIUM LEVEL 137 MEQ/L (136-145)
== END ==
LOC: SKLAB6 07:00
PROVIDERS: ATTEND Family Medicine
DX: E86.0 Dehydration (principal)

== ENCOUNTER → 2016-07-20 | Outpatient (REF) | payer MEDICARE, MEDICAID ==
[2016-07-20 09:40] LABS: CALCIUM LEVEL 8.9 MG/DL (8.8-10.2); CREATININE FOR GFR 0.95 MG/DL (0.55-1.02); GLOMERULAR FILTRATION RATE 59.2 (>32); POTASSIUM SERUM 4.6 MEQ/L (3.5-5.1)
== END ==
LOC: SKLAB6 07:00
PROVIDERS: ATTEND Family Medicine
DX: E86.0 Dehydration (principal)

== ENCOUNTER → 2016-07-27 | Outpatient (REF) | payer MEDICARE, MEDICAID ==
[2016-07-27 09:44] LABS: CALCIUM LEVEL 8.7 MG/DL (8.8-10.2); CREATININE FOR GFR 1.13 MG/DL (0.55-1.02); GLOMERULAR FILTRATION RATE 48.5 (>32); POTASSIUM SERUM 4.5 MEQ/L (3.5-5.1)
== END ==
LOC: SKLAB6 07:00
PROVIDERS: ATTEND Family Medicine
DX: E86.0 Dehydration (principal)

== ENCOUNTER → 2016-07-31 | Outpatient (REF) | payer MEDICARE, MEDICAID | LOC: SKLAB6 14:18 | PROVIDERS: ATTEND Family Medicine | DX: R41.82 Altered mental status, unspecified (principal) ==

== ENCOUNTER → 2016-08-03 | Outpatient (REF) | payer MEDICARE, MEDICAID | LOC: SKLAB6 07:00 | PROVIDERS: ATTEND Family Medicine | DX: Z53.9 Procedure and treatment not carried out, unspecified reason (principal) ==

== ENCOUNTER → 2016-08-10 | Outpatient (REF) | payer MEDICARE, MEDICAID ==
[2016-08-10 09:58] LABS: BASO % 0.4 % (0.0-1.0); EOS # 0.2 K/mm3 (0.0-0.50); EOS % 2.1 % (0.0-3.0); LARGE UNSTAINED CELL # 0.2 K/mm3 (0.0-0.4); LARGE UNSTAINED CELL % 2.3 % (0.0-4.0); LYMPH # 1.7 K/mm3 (1.5-4.5); LYMPH % 20.2 % (24.0-44.0); MEAN CORPUSCULAR HEMOGLOBIN 30.6 pg (27.0-33.0); MEAN CORPUSCULAR HGB CONC 32.1 g/dl (32.0-36.5); MEAN CORPUSCULAR VOLUME 95.4 fl (80.0-96.0); MONO # 0.6 K/mm3 (0.0-0.8); MONO % 8.3 % (0.0-5.0); NEUTROPHILS # 5.1 K/mm3 (1.8-7.7); NEUTROPHILS % 66.7 % (36.0-66.0); PLATELET COUNT, AUTOMATED 120 k/mm3 (150-450); RED CELL DISTRIBUTION WIDTH 13.4 % (11.5-14.5); WHITE BLOOD COUNT 7.6 K/mm3 (4.0-10.0)
[2016-08-10 10:25] LABS: CALCIUM LEVEL 8.6 MG/DL (8.8-10.2); CREATININE FOR GFR 1.11 MG/DL (0.55-1.02); GLOMERULAR FILTRATION RATE 49.5 (>32); POTASSIUM SERUM 4.4 MEQ/L (3.5-5.1)
== END ==
LOC: SKLAB6 08:00
PROVIDERS: ATTEND Family Medicine
DX: E86.0 Dehydration (principal); F03.90 Unspecified dementia, unspecified severity, without behavioral disturbance, psychotic disturbance, mood disturbance, and anxiety

== ENCOUNTER → 2016-08-17 | Outpatient (REF) | payer MEDICARE, MEDICAID ==
[2016-08-17 11:46] LABS: CALCIUM LEVEL 9.1 MG/DL (8.8-10.2); CREATININE FOR GFR 1.14 MG/DL (0.55-1.02)
== END ==
LOC: SKLAB6 08:00
PROVIDERS: ATTEND Family Medicine
DX: E86.0 Dehydration (principal)

== ENCOUNTER → 2016-09-14 | Outpatient (REF) | payer MEDICARE, MEDICAID ==
[~2016-09-14] MED LIST changes: -ACET-654 PO; +ACET1TAB17 PO; +LEVA1TAB2 PO; -LEVA500T PO
[2016-09-14 10:31] LABS: BASO % 0.7 % (0.0-1.0); EOS # 0.2 K/mm3 (0.0-0.50); EOS % 3.9 % (0.0-3.0); LARGE UNSTAINED CELL # 0.1 K/mm3 (0.0-0.4); LARGE UNSTAINED CELL % 2.3 % (0.0-4.0); LYMPH # 1.8 K/mm3 (1.5-4.5); LYMPH % 27.7 % (24.0-44.0); MEAN CORPUSCULAR VOLUME 93.7 fl (80.0-96.0); MONO # 0.5 K/mm3 (0.0-0.8); MONO % 8.3 % (0.0-5.0); NEUTROPHILS # 3.5 K/mm3 (1.8-7.7); PLATELET COUNT, AUTOMATED 129 k/mm3 (150-450); RED CELL DISTRIBUTION WIDTH 13.7 % (11.5-14.5)
[2016-09-14 11:09] LABS: CALCIUM LEVEL 8.5 MG/DL (8.8-10.2); CREATININE FOR GFR 1.18 MG/DL (0.55-1.02); GLOMERULAR FILTRATION RATE 46.1 (>32)
== END ==
LOC: SKLAB6 07:00
PROVIDERS: ATTEND Family Medicine
DX: F03.90 Unspecified dementia, unspecified severity, without behavioral disturbance, psychotic disturbance, mood disturbance, and anxiety (principal)

== ENCOUNTER → 2016-09-18 | Outpatient (REF) | payer MEDICARE, MEDICAID ==
[2016-09-18 08:43] LABS: CALCIUM LEVEL 8.8 MG/DL (8.8-10.2); CREATININE FOR GFR 1.17 MG/DL (0.55-1.02); GLOMERULAR FILTRATION RATE 46.6 (>32); POTASSIUM SERUM 4.3 MEQ/L (3.5-5.1)
== END ==
LOC: SKLAB6 08:00
PROVIDERS: ATTEND Family Medicine
DX: F03.90 Unspecified dementia, unspecified severity, without behavioral disturbance, psychotic disturbance, mood disturbance, and anxiety (principal)

== ENCOUNTER → 2016-10-12 | Outpatient (REF) | payer MEDICARE, MEDICAID ==
[2016-10-12 09:58] LABS: BASO % 0.7 % (0.0-1.0); EOS # 0.2 K/mm3 (0.0-0.50); LARGE UNSTAINED CELL # 0.1 K/mm3 (0.0-0.4); LARGE UNSTAINED CELL % 2.4 % (0.0-4.0); LYMPH # 1.7 K/mm3 (1.5-4.5); LYMPH % 29.1 % (24.0-44.0); MEAN CORPUSCULAR HEMOGLOBIN 30.3 pg (27.0-33.0); MEAN CORPUSCULAR HGB CONC 32.7 g/dl (32.0-36.5); MEAN CORPUSCULAR VOLUME 92.8 fl (80.0-96.0); MONO # 0.5 K/mm3 (0.0-0.8); MONO % 7.7 % (0.0-5.0); NEUTROPHILS # 3.3 K/mm3 (1.8-7.7); NEUTROPHILS % 56.1 % (36.0-66.0); PLATELET COUNT, AUTOMATED 133 k/mm3 (150-450); RED CELL DISTRIBUTION WIDTH 13.6 % (11.5-14.5); WHITE BLOOD COUNT 5.8 K/mm3 (4.0-10.0)
[2016-10-12 10:24] LABS: CALCIUM LEVEL 8.4 MG/DL (8.8-10.2); CREATININE FOR GFR 1.25 MG/DL (0.55-1.02); GLOMERULAR FILTRATION RATE 43.1 (>32); POTASSIUM SERUM 4.6 MEQ/L (3.5-5.1)
== END ==
LOC: SKLAB6 07:00
PROVIDERS: ATTEND Family Medicine
DX: F03.90 Unspecified dementia, unspecified severity, without behavioral disturbance, psychotic disturbance, mood disturbance, and anxiety (principal)

== ENCOUNTER → 2016-10-16 | Outpatient (REF) | payer MEDICARE, MEDICAID | LOC: SKLAB6 13:00 | PROVIDERS: ATTEND Family Medicine | DX: S81.801A Unspecified open wound, right lower leg, initial encounter (principal); X58.XXXA Exposure to other specified factors, initial encounter; Y92.129 Unspecified place in nursing home as the place of occurrence of the external cause; Y93.9 Activity, unspecified; Y99.9 Unspecified external cause status ==

== ENCOUNTER → 2016-11-09 | Outpatient (REF) | payer MEDICARE, MEDICAID ==
[2016-11-09 09:28] LABS: CALCIUM LEVEL 8.9 MG/DL (8.8-10.2); CREATININE FOR GFR 1.18 MG/DL (0.55-1.02)
[2016-11-09 09:51] LABS: POTASSIUM SERUM 5.2 MEQ/L (3.5-5.1)
== END ==
LOC: SKLAB6 11-07 07:00
PROVIDERS: ATTEND Family Medicine
DX: R60.9 Edema, unspecified (principal)

== ENCOUNTER → 2016-11-16 | Outpatient (REF) | payer MEDICARE, MEDICAID ==
[2016-11-16 09:55] LABS: BASO % 0.8 % (0.0-1.0); EOS # 0.3 K/mm3 (0.0-0.50); EOS % 4.5 % (0.0-3.0); LARGE UNSTAINED CELL # 0.1 K/mm3 (0.0-0.4); LARGE UNSTAINED CELL % 1.7 % (0.0-4.0); LYMPH # 1.9 K/mm3 (1.5-4.5); LYMPH % 27.6 % (24.0-44.0); MEAN CORPUSCULAR HEMOGLOBIN 29.6 pg (27.0-33.0); MEAN CORPUSCULAR VOLUME 92.7 fl (80.0-96.0); MONO # 0.5 K/mm3 (0.0-0.8); MONO % 8.5 % (0.0-5.0); NEUTROPHILS # 3.7 K/mm3 (1.8-7.7); NEUTROPHILS % 56.9 % (36.0-66.0); PLATELET COUNT, AUTOMATED 124 k/mm3 (150-450); RED CELL DISTRIBUTION WIDTH 13.9 % (11.5-14.5); WHITE BLOOD COUNT 6.4 K/mm3 (4.0-10.0)
[2016-11-16 10:11] LABS: CALCIUM LEVEL 9.2 MG/DL (8.8-10.2); CREATININE FOR GFR 1.31 MG/DL (0.55-1.02); GLOMERULAR FILTRATION RATE 40.8 (>32); POTASSIUM SERUM 4.5 MEQ/L (3.5-5.1)
== END ==
LOC: SKLAB6 07:00
PROVIDERS: ATTEND Family Medicine
DX: R60.9 Edema, unspecified (principal)

== ENCOUNTER → 2016-11-21 | Outpatient (REF) | payer MEDICARE, MEDICAID ==
[2016-11-21 13:31] LABS: CALCIUM LEVEL 8.5 MG/DL (8.8-10.2); CREATININE FOR GFR 1.29 MG/DL (0.55-1.02); GLOMERULAR FILTRATION RATE 41.5 (>32); POTASSIUM SERUM 4.6 MEQ/L (3.5-5.1)
== END ==
LOC: SKLAB6 08:00
PROVIDERS: ATTEND Family Medicine
DX: R60.9 Edema, unspecified (principal)

== ENCOUNTER → 2016-12-14 | Outpatient (REF) | payer MEDICARE, MEDICAID ==
[2016-12-14 09:58] LABS: BASO # 0.1 10^3/uL (0.0-0.2); BASO % 0.8 % (0.0-1.0); EOS # 0.3 10^3/uL (0.0-0.50); EOS % 4.6 % (0.0-3.0); IMMATURE GRANULOCYTE % 0.5 % (0-0); LYMPH # 1.7 10^3/uL (1.5-4.5); LYMPH % 26.7 % (24.0-44.0); MEAN CORPUSCULAR HEMOGLOBIN 29.3 pg (27.0-33.0); MEAN CORPUSCULAR HGB CONC 31.8 g/dl (32.0-36.5); MEAN CORPUSCULAR VOLUME 92.1 fl (80.0-96.0); MONO # 0.6 10^3/uL (0.0-0.8); MONO % 9.7 % (0.0-5.0); NEUTROPHILS # 3.8 10^3/uL (1.8-7.7); NEUTROPHILS % 57.7 % (36.0-66.0); PLATELET COUNT, AUTOMATED 149 10^3/uL (150-450); RED CELL DISTRIBUTION WIDTH 14.3 % (11.5-14.5); WHITE BLOOD COUNT 6.5 10^3/uL (4.0-10.0)
[2016-12-14 10:16] LABS: CALCIUM LEVEL 9.2 MG/DL (8.8-10.2); CREATININE FOR GFR 1.33 MG/DL (0.55-1.02); GLOMERULAR FILTRATION RATE 40.1 (>32); POTASSIUM SERUM 4.7 MEQ/L (3.5-5.1)
== END ==
LOC: SKLAB6 07:00
PROVIDERS: ATTEND Family Medicine
DX: F03.90 Unspecified dementia, unspecified severity, without behavioral disturbance, psychotic disturbance, mood disturbance, and anxiety (principal); R60.9 Edema, unspecified

== ENCOUNTER → 2017-01-11 | Outpatient (REF) | payer MEDICARE ==
[2017-01-11 08:34] LABS: BASO % 0.5 % (0.0-1.0); EOS # 0.2 10^3/uL (0.0-0.50); EOS % 3.7 % (0.0-3.0); IMMATURE GRANULOCYTE % 0.5 % (0-0); LYMPH % 30.8 % (24.0-44.0); MEAN CORPUSCULAR HEMOGLOBIN 29.7 pg (27.0-33.0); MEAN CORPUSCULAR HGB CONC 32.4 g/dl (32.0-36.5); MEAN CORPUSCULAR VOLUME 91.8 fl (80.0-96.0); MONO # 0.6 10^3/uL (0.0-0.8); MONO % 9.5 % (0.0-5.0); NEUTROPHILS # 3.6 10^3/uL (1.8-7.7); PLATELET COUNT, AUTOMATED 138 10^3/uL (150-450); RED CELL DISTRIBUTION WIDTH 14.5 % (11.5-14.5); WHITE BLOOD COUNT 6.6 10^3/uL (4.0-10.0)
[2017-01-11 09:02] LABS: CALCIUM LEVEL 8.8 MG/DL (8.8-10.2); CREATININE FOR GFR 1.27 MG/DL (0.55-1.02); GLOMERULAR FILTRATION RATE 42.3 (>32); POTASSIUM SERUM 4.6 MEQ/L (3.5-5.1)
== END ==
LOC: SKLAB6 07:00
PROVIDERS: ATTEND Family Medicine
DX: F03.91 Unspecified dementia, unspecified severity, with behavioral disturbance (principal)

== ENCOUNTER → 2017-02-15 | Outpatient (REF) | payer MEDICARE ==
[2017-02-15 08:52] LABS: BASO # 0.1 10^3/uL (0.0-0.2); BASO % 0.6 % (0.0-1.0); EOS # 0.3 10^3/uL (0.0-0.50); EOS % 2.9 % (0.0-3.0); IMMATURE GRANULOCYTE % 0.4 % (0-0); LYMPH # 2.4 10^3/uL (1.5-4.5); LYMPH % 27.3 % (24.0-44.0); MEAN CORPUSCULAR HEMOGLOBIN 29.7 pg (27.0-33.0); MEAN CORPUSCULAR HGB CONC 32.3 g/dl (32.0-36.5); MONO # 0.7 10^3/uL (0.0-0.8); MONO % 8.2 % (0.0-5.0); NEUTROPHILS # 5.4 10^3/uL (1.8-7.7); NEUTROPHILS % 60.6 % (36.0-66.0); PLATELET COUNT, AUTOMATED 158 10^3/uL (150-450); WHITE BLOOD COUNT 8.9 10^3/uL (4.0-10.0)
[2017-02-15 09:17] LABS: CALCIUM LEVEL 8.6 MG/DL (8.8-10.2); CREATININE FOR GFR 1.35 MG/DL (0.55-1.02); GLOMERULAR FILTRATION RATE 39.4 (>32); POTASSIUM SERUM 4.4 MEQ/L (3.5-5.1)
== END ==
LOC: SKLAB6 07:00
PROVIDERS: ATTEND Family Medicine
DX: F03.90 Unspecified dementia, unspecified severity, without behavioral disturbance, psychotic disturbance, mood disturbance, and anxiety (principal)

== ENCOUNTER → 2017-03-15 | Outpatient (REF) | payer MEDICARE ==
[2017-03-15 09:40] LABS: BASO % 0.6 % (0.0-1.0); EOS # 0.3 10^3/uL (0.0-0.50); EOS % 4.9 % (0.0-3.0); HEMATOCRIT 38.4 % (36.0-47.0); HEMOGLOBIN 12.1 g/dl (12.0-16.0); IMMATURE GRANULOCYTE # 0.1 10^3/uL (0-0); IMMATURE GRANULOCYTE % 0.7 % (0-0); LYMPH # 1.6 10^3/uL (1.5-4.5); LYMPH % 23.1 % (24.0-44.0); MEAN CORPUSCULAR HEMOGLOBIN 29.2 pg (27.0-33.0); MEAN CORPUSCULAR HGB CONC 31.5 g/dl (32.0-36.5); MEAN CORPUSCULAR VOLUME 92.8 fl (80.0-96.0); MONO # 0.6 10^3/uL (0.0-0.8); MONO % 7.9 % (0.0-5.0); NEUTROPHILS # 4.3 10^3/uL (1.8-7.7); NEUTROPHILS % 62.8 % (36.0-66.0); PLATELET COUNT, AUTOMATED 136 10^3/uL (150-450); RED BLOOD COUNT 4.14 10^6/uL (4.00-5.40); RED CELL DISTRIBUTION WIDTH 13.7 % (11.5-14.5); WHITE BLOOD COUNT 6.9 10^3/uL (4.0-10.0)
[2017-03-15 10:22] LABS: ANION GAP 11 MEQ/L (8-16); BLOOD UREA NITROGEN 50 MG/DL (7-18); CARBON DIOXIDE LEVEL 24 MEQ/L (21-32); CHLORIDE LEVEL 105 MEQ/L (98-107); GLOMERULAR FILTRATION RATE 37.8 (>32); GLUCOSE, FASTING 115 MG/DL (83-110); POTASSIUM SERUM 4.4 MEQ/L (3.5-5.1); SODIUM LEVEL 140 MEQ/L (136-145)
== END ==
LOC: SKLAB6 07:00
DX: F03.90 Unspecified dementia, unspecified severity, without behavioral disturbance, psychotic disturbance, mood disturbance, and anxiety (principal); Z79.899 Other long term (current) drug therapy
CPT/HCPCS: 36415

== ENCOUNTER → 2017-04-12 | Outpatient (REF) | payer MEDICARE ==
[2017-04-12 09:01] LABS: BASO # 0.1 10^3/uL (0.0-0.2); BASO % 0.7 % (0.0-1.0); EOS # 0.4 10^3/uL (0.0-0.50); EOS % 4.2 % (0.0-3.0); HEMATOCRIT 39.5 % (36.0-47.0); HEMOGLOBIN 12.5 g/dl (12.0-16.0); IMMATURE GRANULOCYTE % 0.6 % (0-3.0); LYMPH # 2.6 10^3/uL (1.5-4.5); LYMPH % 29.5 % (24.0-44.0); MEAN CORPUSCULAR HGB CONC 31.6 g/dl (32.0-36.5); MEAN CORPUSCULAR VOLUME 91.6 fl (80.0-96.0); MONO # 0.9 10^3/uL (0.0-0.8); NEUTROPHILS # 4.9 10^3/uL (1.8-7.7); PLATELET COUNT, AUTOMATED 124 10^3/uL (150-450); RED BLOOD COUNT 4.31 10^6/uL (4.00-5.40); RED CELL DISTRIBUTION WIDTH 14.1 % (11.5-14.5); WHITE BLOOD COUNT 8.9 10^3/uL (4.0-10.0)
[2017-04-12 09:29] LABS: ANION GAP 7 MEQ/L (8-16); BLOOD UREA NITROGEN 49 MG/DL (7-18); CALCIUM LEVEL 8.6 MG/DL (8.8-10.2); CARBON DIOXIDE LEVEL 25 MEQ/L (21-32); CHLORIDE LEVEL 106 MEQ/L (98-107); CREATININE FOR GFR 1.38 MG/DL (0.55-1.30); GLOMERULAR FILTRATION RATE 38.4 (>32); GLUCOSE, FASTING 122 MG/DL (70-100); POTASSIUM SERUM 4.3 MEQ/L (3.5-5.1); SODIUM LEVEL 138 MEQ/L (136-145)
== END ==
LOC: SKLAB6 07:00
DX: F03.90 Unspecified dementia, unspecified severity, without behavioral disturbance, psychotic disturbance, mood disturbance, and anxiety (principal)
CPT/HCPCS: 36415

== ENCOUNTER → 2017-05-10 | Outpatient (REF) | payer MEDICARE ==
[2017-05-10 07:55] LABS: BASO % 0.5 % (0.0-1.0); EOS # 0.5 10^3/uL (0.0-0.50); EOS % 5.7 % (0.0-3.0); HEMATOCRIT 39.4 % (36.0-47.0); HEMOGLOBIN 12.5 g/dl (12.0-16.0); IMMATURE GRANULOCYTE % 0.3 % (0-3.0); LYMPH # 3.1 10^3/uL (1.5-4.5); LYMPH % 35.7 % (24.0-44.0); MEAN CORPUSCULAR HEMOGLOBIN 29.4 pg (27.0-33.0); MEAN CORPUSCULAR HGB CONC 31.7 g/dl (32.0-36.5); MEAN CORPUSCULAR VOLUME 92.7 fl (80.0-96.0); MONO % 11.7 % (0.0-5.0); NEUTROPHILS % 46.1 % (36.0-66.0); PLATELET COUNT, AUTOMATED 142 10^3/uL (150-450); RED BLOOD COUNT 4.25 10^6/uL (4.00-5.40); RED CELL DISTRIBUTION WIDTH 14.5 % (11.5-14.5); WHITE BLOOD COUNT 8.8 10^3/uL (4.0-10.0)
[2017-05-10 08:49] LABS: ANION GAP 12 MEQ/L (8-16); BLOOD UREA NITROGEN 55 MG/DL (7-18); CARBON DIOXIDE LEVEL 23 MEQ/L (21-32); CHLORIDE LEVEL 106 MEQ/L (98-107); CREATININE FOR GFR 1.46 MG/DL (0.55-1.30); GLUCOSE, FASTING 87 MG/DL (70-100); POTASSIUM SERUM 4.8 MEQ/L (3.5-5.1); SODIUM LEVEL 141 MEQ/L (136-145)
== END ==
LOC: SKLAB6 07:00
DX: R60.0 Localized edema (principal); I12.9 Hypertensive chronic kidney disease with stage 1 through stage 4 chronic kidney disease, or unspecified chronic kidney disease; I50.9 Heart failure, unspecified
CPT/HCPCS: 36415

== ENCOUNTER → 2017-08-16 | Outpatient (REF) | payer MEDICARE, MEDICAID ==
[2017-08-16 08:03] LABS: BASO % 0.6 % (0.0-1.0); EOS # 0.3 10^3/uL (0.0-0.50); EOS % 4.7 % (0.0-3.0); HEMATOCRIT 34.7 % (36.0-47.0); HEMOGLOBIN 11.2 g/dl (12.0-15.5); IMMATURE GRANULOCYTE % 0.7 % (0-3.0); LYMPH # 2.6 10^3/uL (1.5-4.5); MEAN CORPUSCULAR HEMOGLOBIN 30.1 pg (27.0-33.0); MEAN CORPUSCULAR HGB CONC 32.3 g/dl (32.0-36.5); MEAN CORPUSCULAR VOLUME 93.3 fl (80.0-96.0); MONO # 0.8 10^3/uL (0.0-0.8); MONO % 11.4 % (0.0-5.0); NEUTROPHILS # 3.4 10^3/uL (1.8-7.7); NEUTROPHILS % 46.6 % (36.0-66.0); PLATELET COUNT, AUTOMATED 120 10^3/uL (150-450); RED BLOOD COUNT 3.72 10^6/uL (4.00-5.40); RED CELL DISTRIBUTION WIDTH 13.2 % (11.5-14.5); WHITE BLOOD COUNT 7.2 10^3/uL (4.0-10.0)
[2017-08-16 08:27] LABS: ANION GAP 7 MEQ/L (8-16); BLOOD UREA NITROGEN 56 MG/DL (7-18); CALCIUM LEVEL 8.6 MG/DL (8.8-10.2); CARBON DIOXIDE LEVEL 27 MEQ/L (21-32); CHLORIDE LEVEL 110 MEQ/L (98-107); CREATININE FOR GFR 1.43 MG/DL (0.55-1.30); GLOMERULAR FILTRATION RATE 36.9 (>32); GLUCOSE, FASTING 110 MG/DL (70-100); POTASSIUM SERUM 4.3 MEQ/L (3.5-5.1); SODIUM LEVEL 144 MEQ/L (136-145)
== END ==
LOC: SKLAB6 07:00
DX: F03.90 Unspecified dementia, unspecified severity, without behavioral disturbance, psychotic disturbance, mood disturbance, and anxiety (principal); N18.3 Chronic kidney disease, stage 3 (moderate)
CPT/HCPCS: 36415

== ENCOUNTER → 2017-09-27 | Outpatient (REF) | payer MEDICARE, MEDICAID ==
[2017-09-27 12:59] LABS: AMORPHOUS SEDIMENT SMALL (NEGATIVE); APPEARANCE, URINE HAZY (CLEAR); BACTERIA, URINE AUTO 1+ (NEGATIVE); BILIRUBIN, URINE AUTO NEGATIVE (NEGATIVE); BLOOD, URINE BLOOD NEGATIVE (NEGATIVE); COLOR, URINE YELLOW (YELLOW); GLUCOSE, URINE (UA) AUTO NEGATIVE (NEGATIVE); KETONE, URINE AUTO NEGATIVE (NEGATIVE); LEUKOCYTE ESTERASE, URINE AUTO 3+ (NEGATIVE); NITRITE, URINE AUTO NEGATIVE (NEGATIVE); PROTEIN, URINE AUTO NEGATIVE (NEGATIVE); RBC, URINE AUTO 4 /HPF (0-3); SQUAMOUS EPITHELIAL CELL UR AU 1 /HPF (0-6); TRANSITIONAL EPITHELIAL AUTO 1 /HPF; UROBILINOGEN, URINE AUTO 0.2 mg/dL (0.0-2.0); WBC, URINE AUTO 54 /HPF (0-3)
== END ==
LOC: SKLAB6 12:34
DX: M54.9 Dorsalgia, unspecified (principal)
CPT/HCPCS: 81001

== ENCOUNTER → 2017-11-15 | Outpatient (REF) | payer MEDICARE, MEDICAID ==
[2017-11-15 10:45] LABS: BASO # 0.1 10^3/uL (0.0-0.2); BASO % 0.6 % (0.0-1.0); EOS # 0.4 10^3/uL (0.0-0.50); EOS % 5.1 % (0.0-3.0); HEMATOCRIT 35.8 % (36.0-47.0); HEMOGLOBIN 11.7 g/dl (12.0-15.5); IMMATURE GRANULOCYTE % 0.4 % (0-3.0); LYMPH # 2.4 10^3/uL (1.5-4.5); LYMPH % 30.2 % (24.0-44.0); MEAN CORPUSCULAR HEMOGLOBIN 30.6 pg (27.0-33.0); MEAN CORPUSCULAR HGB CONC 32.7 g/dl (32.0-36.5); MEAN CORPUSCULAR VOLUME 93.7 fl (80.0-96.0); MONO # 0.7 10^3/uL (0.0-0.8); MONO % 8.5 % (0.0-5.0); NEUTROPHILS # 4.4 10^3/uL (1.8-7.7); NEUTROPHILS % 55.2 % (36.0-66.0); PLATELET COUNT, AUTOMATED 130 10^3/uL (150-450); RED BLOOD COUNT 3.82 10^6/uL (4.00-5.40); RED CELL DISTRIBUTION WIDTH 12.9 % (11.5-14.5)
[2017-11-15 11:13] LABS: ANION GAP 9 MEQ/L (8-16); BLOOD UREA NITROGEN 61 MG/DL (7-18); CALCIUM LEVEL 9.1 MG/DL (8.8-10.2); CARBON DIOXIDE LEVEL 23 MEQ/L (21-32); CHLORIDE LEVEL 110 MEQ/L (98-107); GLOMERULAR FILTRATION RATE 28.2 (>32); GLUCOSE, FASTING 173 MG/DL (70-100); POTASSIUM SERUM 4.5 MEQ/L (3.5-5.1); SODIUM LEVEL 142 MEQ/L (136-145)
== END ==
LOC: SKLAB6 07:00
DX: F03.90 Unspecified dementia, unspecified severity, without behavioral disturbance, psychotic disturbance, mood disturbance, and anxiety (principal); R60.9 Edema, unspecified; Z95.0 Presence of cardiac pacemaker
CPT/HCPCS: 80048

== ENCOUNTER → 2018-02-14 | Outpatient (REF) | payer MEDICARE, MEDICAID ==
[2018-02-14 08:21] LABS: BASO # 0.1 10^3/uL (0.0-0.2); BASO % 0.6 % (0.0-1.0); EOS # 0.3 10^3/uL (0.0-0.50); EOS % 4.1 % (0.0-3.0); HEMATOCRIT 41.2 % (36.0-47.0); HEMOGLOBIN 13.1 g/dl (12.0-15.5); IMMATURE GRANULOCYTE % 0.8 % (0-3.0); LYMPH # 2.7 10^3/uL (1.5-4.5); LYMPH % 34.6 % (24.0-44.0); MEAN CORPUSCULAR HEMOGLOBIN 30.4 pg (27.0-33.0); MEAN CORPUSCULAR HGB CONC 31.8 g/dl (32.0-36.5); MEAN CORPUSCULAR VOLUME 95.6 fl (80.0-96.0); MONO # 0.8 10^3/uL (0.0-0.8); MONO % 9.6 % (0.0-5.0); NEUTROPHILS # 3.9 10^3/uL (1.8-7.7); NEUTROPHILS % 50.3 % (36.0-66.0); PLATELET COUNT, AUTOMATED 121 10^3/uL (150-450); RED BLOOD COUNT 4.31 10^6/uL (4.00-5.40); RED CELL DISTRIBUTION WIDTH 12.3 % (11.5-14.5); WHITE BLOOD COUNT 7.8 10^3/uL (4.0-10.0)
[2018-02-14 11:41] LABS: ANION GAP 10 MEQ/L (8-16); BLOOD UREA NITROGEN 42 MG/DL (7-18); CALCIUM LEVEL 9.2 MG/DL (8.8-10.2); CARBON DIOXIDE LEVEL 25 MEQ/L (21-32); CHLORIDE LEVEL 105 MEQ/L (98-107); GLOMERULAR FILTRATION RATE 32.3 (>32); GLUCOSE, FASTING 127 MG/DL (70-100); SODIUM LEVEL 140 MEQ/L (136-145)
== END ==
LOC: SKLAB6 07:00
DX: F03.91 Unspecified dementia, unspecified severity, with behavioral disturbance (principal)
CPT/HCPCS: 80048

== ENCOUNTER → 2018-05-16 | Outpatient (REF) | payer MEDICARE, MEDICAID ==
[~2018-05-16] MED LIST changes: -ACET1TAB17 PO; +ACET1TAB55 PO; -LASI40TA PO; +LASI40TA9 PO; +MILK120011 PO; -MILKSUS PO; -NICO21DI5 TD; +NICO21DI6 TD
[2018-05-16 08:19] LABS: BASO # 0.1 10^3/uL (0.0-0.2); BASO % 0.9 % (0.0-1.0); EOS # 0.4 10^3/uL (0.0-0.50); EOS % 5.3 % (0.0-3.0); HEMATOCRIT 38.8 % (36.0-47.0); HEMOGLOBIN 12.1 g/dl (12.0-15.5); LYMPH # 2.2 10^3/uL (1.5-4.5); LYMPH % 26.7 % (24.0-44.0); MEAN CORPUSCULAR HEMOGLOBIN 30.1 pg (27.0-33.0); MEAN CORPUSCULAR HGB CONC 31.2 g/dl (32.0-36.5); MEAN CORPUSCULAR VOLUME 96.5 fl (80.0-96.0); MONO # 0.8 10^3/uL (0.0-0.8); MONO % 9.4 % (0.0-5.0); NEUTROPHILS # 4.7 10^3/uL (1.8-7.7); NEUTROPHILS % 57.1 % (36.0-66.0); PLATELET COUNT, AUTOMATED 128 10^3/uL (150-450); RED BLOOD COUNT 4.02 10^6/uL (4.00-5.40); WHITE BLOOD COUNT 8.2 10^3/uL (4.0-10.0)
[2018-05-16 11:09] LABS: CALCIUM LEVEL 8.7 MG/DL (8.8-10.2); CREATININE FOR GFR 1.9 MG/DL (0.55-1.30); GLOMERULAR FILTRATION RATE 26.5 (>32); POTASSIUM SERUM 4.2 MEQ/L (3.5-5.1)
== END ==
LOC: SKLAB6 07:00
PROVIDERS: ATTEND Family Medicine
DX: F03.90 Unspecified dementia, unspecified severity, without behavioral disturbance, psychotic disturbance, mood disturbance, and anxiety (principal); N18.9 Chronic kidney disease, unspecified